=== PATIENT | female | born 1985 | race Caucasian/White ===

== ENCOUNTER 2025-02-13 06:33 | Inpatient (IN) | payer OTHER ==
[2025-02-13] VITALS (42 sets, daily range): BP systolic 92–166; BP diastolic 55–103
[~2025-02-13] VITALS: Ht 162.6 cm; Wt 81.0 kg
[~2025-02-13 06:33] MED LIST: AMOCLA875 PO; BCP; CYCL10 PO; HYDACE5 PO; HYDCOR2.5C PR; HYDR1TAB94 PO; IBUP800 PO; MAGIC MOUTHWASH; METPRE4DP PO; Miralax17 GM PO; NITR100 PO; Norco 5-325 Ta1 EACH PO; ONDA4ODT MM; OXYACE5T PO; PRAHYD1AE TOP; PRENATAL TABLE1 EAC2 PO; Percocet 5-3251 EACH PO; RXCYCL10 PO; RXHYDACE PO; Roxicodone5 MG PO; Sudogest30 MG PO; VALA500 PO; Verotin-Gr Cap1 EACH; Verotin-Gr Cap1 EACH PO
[2025-02-13] MEDS ORDERED: FentaNYL Citrate 50 MCG/ML 2 ML Injection IV PRN (07:30)
[2025-02-13] MEDS ORDERED: Ondansetron HCl 2 MG / ML 2ML Vial IV PRN (07:30)
[2025-02-13] MEDS ORDERED: OXYTOCIN/RINGER'S LACTATE 500 ML IV PRN (07:30)
[2025-02-13] MEDS ORDERED: OXYTOCIN/RINGER'S LACTATE 500 ML IV SCH ×2 (07:30→22:20)
[2025-02-13] MEDS ORDERED: Carboprost Tromethamine 250 MCG/ML 1ML Amp IM PRN (07:30)
[2025-02-13] MEDS ORDERED: Methylergonovine Maleate 0.2MG / ML 1ML Amp IM PRN ×2 (07:30→22:20)
[2025-02-13] MEDS ORDERED: Oxytocin 10 Unit / ML Vial IM PRN (07:30)
[2025-02-13] MEDS ORDERED: ePHEDrine Sulfate 50 MG/ML 1ML Injection XX PRN (07:35)
[2025-02-13] MEDS ORDERED: OXYTOCIN/RINGER'S LACTATE 500 ML IV ONE (07:35)
[2025-02-13] MEDS ORDERED: FentaNYL 2mcg/ml-Bup 0.1% Epd 250 ML EPI PRN (07:35)
[2025-02-13] MEDS ORDERED: Tranexamic Acid 100 ML IV SCH (07:40)
[2025-02-13 07:42] LABS: BASOPHILS ABSOLUTE AUTO 0.09 K/mm3 (0.00-0.23); BASOPHILS PERCENT AUTO 1 % (0-2); EOSINOPHILS ABSOLUTE AUTO 0.21 K/mm3 (0.00-0.68); EOSINOPHILS PERCENT AUTO 1 % (0-6); Hematocrit 33.2 % (33.0-51.0); Hemoglobin 10.9 g/dL (11.5-16.0); IMMATURE GRAN ABSOLUTE AUTO 0.35 K/mm3 (0.00-0.10); IMMATURE GRAN PERCENT AUTO 2 % (0-1); LYMPHOCYTES ABSOLUTE AUTO 3.41 K/mm3 (0.84-5.20); LYMPHOCYTES PERCENT AUTO 19 % (21-46); MONOCYTES ABSOLUTE AUTO 1.06 K/mm3 (0.16-1.47); MONOCYTES PERCENT AUTO 6 % (4-13); Mean Corpuscular HGB Conc 32.8 g/dL (31.5-36.5); Mean Corpuscular Volume 90 fL (80-100); NEUTROPHILS ABSOLUTE AUTO 12.97 K/mm3 (1.96-9.15); NEUTROPHILS PERCENT AUTO 72 % (41-73); NRBC ABSOLUTE 0.00 K/mm3 (0.00-0.02); NRBC Auto 0.0 /100 WBC (0.0-0.2); Platelet Count 315 K/mm3 (150-400); RDW Coefficient Variation 13.4 % (11.7-14.2); RDW Standard Deviation 43.8 fL (35.1-46.3)
[2025-02-13] MEDS ORDERED: Methylergonovine Maleate 0.2MG / ML 1ML Amp IV ONE (08:04)
[2025-02-13] MEDS ORDERED: FentaNYL Citrate 50 MCG/ML 2 ML Injection ONE (17:14)
[2025-02-13] MEDS ORDERED: Benzocaine Topical Anesthetic Spray 60GM TOP PRN (22:20)
[2025-02-13] MEDS ORDERED: Witch Hazel/Glycerin PADS TOP PRN (22:25)
[2025-02-14] MEDS ORDERED: Ketorolac Tromethamine 30mg Vial IV SCH
[2025-02-14 00:43] VITALS: BP 113/70
[2025-02-14 05:47] VITALS: BP 125/75
[2025-02-14 06:09] LABS: BASOPHILS ABSOLUTE AUTO 0.09 K/mm3 (0.00-0.23); BASOPHILS PERCENT AUTO 0 % (0-2); EOSINOPHILS ABSOLUTE AUTO 0.14 K/mm3 (0.00-0.68); EOSINOPHILS PERCENT AUTO 1 % (0-6); Hematocrit 32.7 % (33.0-51.0); Hemoglobin 10.7 g/dL (11.5-16.0); IMMATURE GRAN ABSOLUTE AUTO 0.21 K/mm3 (0.00-0.10); IMMATURE GRAN PERCENT AUTO 1 % (0-1); LYMPHOCYTES ABSOLUTE AUTO 2.97 K/mm3 (0.84-5.20); LYMPHOCYTES PERCENT AUTO 13 % (21-46); MONOCYTES ABSOLUTE AUTO 1.33 K/mm3 (0.16-1.47); MONOCYTES PERCENT AUTO 6 % (4-13); Mean Corpuscular HGB Conc 32.7 g/dL (31.5-36.5); Mean Corpuscular Volume 91 fL (80-100); NEUTROPHILS ABSOLUTE AUTO 18.43 K/mm3 (1.96-9.15); NEUTROPHILS PERCENT AUTO 80 % (41-73); NRBC ABSOLUTE 0.00 K/mm3 (0.00-0.02); NRBC Auto 0.0 /100 WBC (0.0-0.2); Platelet Count 278 K/mm3 (150-400); RDW Coefficient Variation 13.3 % (11.7-14.2); RDW Standard Deviation 43.8 fL (35.1-46.3)
--- NOTE | 2025-02-14 07:42 | NUR ---
PT UP AMBULATING IN ROOM, DOING ALL MORNING SELF CARE. EXPERIENCED MOM SACHA NB AND SELF CARE WELL. NO QUESTIONS OR CONCERNS. DESIRES D/C AT 24 HOURS.
[2025-02-14 08:06] VITALS: BP 110/65
[2025-02-14 12:19] VITALS: BP 122/69
--- NOTE | 2025-02-14 13:23 | NUR ---
PT RESTING COMFORTABLY, HOLDING NB. DENIES PAIN
--- NOTE | 2025-02-14 16:18 | NUR ---
FAMILY IN TO VISIT. PT WILL CALL WHEN IT IS OK FOR RN TO R/T FOR VS. PT DENIES PAIN. NO COMPLAINTS.
[2025-02-14 17:31] VITALS: BP 108/61
--- NOTE | 2025-02-14 17:36 | NUR ---
RESTING COMFORTABLYL. HOLDING NB. SACHA NB AND SELF CARE WELL. NO COMPLAINTS OR CONCERNS.
[2025-02-14 20:17] VITALS: BP 113/63
--- NOTE | 2025-02-14 23:52 | NUR ---
PT D/C'D WITH NB TO HOME. NB HAS FOLLOW UP APPOINTMENT OON THURSDAY AT 1600 WITH ERIC. PT DECLINED PPFU HERE IN [facility]. VSS NB BREAST FEEDING WELL, PARENTS HAD NO TOHER QUESTIONS.
== END 2025-02-14 23:29 | disposition home or self-care (01) | DRG 807 ==
LOC: OBS 06:33 → BC 06:39
PROVIDERS: ADMIT Obstetrics & Gynecology
PROC: 10E0XZZ Delivery of Products of Conception, External Approach (ICD-10-PCS; principal; 2025-02-13)
DX: O24.429 Gestational diabetes mellitus in childbirth, unspecified control (principal); Z37.0 Single live birth; O99.52 Diseases of the respiratory system complicating childbirth; J45.909 Unspecified asthma, uncomplicated; Z82.49 Family history of ischemic heart disease and other diseases of the circulatory system; Z3A.38 38 weeks gestation of pregnancy; Z88.1 Allergy status to other antibiotic agents; Z88.5 Allergy status to narcotic agent; Z88.8 Allergy status to other drugs, medicaments and biological substances
CPT/HCPCS: 36415; 51702; 82947; 85025; 86850; 86900; 86901; 86923; A9270; J1885; J2210; J2405; J2590; J3010; J7120